=== PATIENT | female | born 1945 | race American Indian/Alaskan Native ===

== ENCOUNTER 2019-05-07 17:12 | Emergency (ER) | payer MEDICARE ==
--- NOTE | 2019-05-07 18:29 | Emergency Department Report ---
HPI - General Chief Complaint: Fall Time Seen by Provider: 05/07/19 18:01 - HPI HPI: 74-year-old -[place] female presents to the emergency department by EMS [place] after she had a ground-level fall. The patient says that she thinks that she did not lift her foot up high and off and tripped on a curb area she fell towards her left side. She fell on her shoulder and did hit her head but denies any loss of consciousness. She complains of some sharp right-sided pains, some dizziness or "feeling woozy", and some left shoulder pain. Patient normally walks with a cane at baseline. She has a past medical history of arthritis and hypertension. Patient is a [facility] patient. She has not taken anything and was not given anything for her symptoms prior to arrival today. ED Past Medical Hx - Past Medical History Previous Medical History?: Yes Hx Hypertension: Yes Hx Arthritis: Yes - Surgical History Past Surgical History?: No - Social History Smoking Status: Never Smoker - Medications Home Medications: Home Medications Medication Instructions Recorded Confirmed Last Taken Type Ibuprofen [Motrin 800 MG tab] 800 mg PO Q8HR PRN #20 tablet 05/07/19 Unknown Rx ED Review of Systems ROS: Stated complaint: HEADACHE Other details as noted in HPI Comment: All other systems reviewed and negative Constitutional: denies: chills, fever Eyes: denies: eye pain, vision change ENT: denies: ear pain, throat pain Respiratory: denies: cough, shortness of breath Cardiovascular: denies: chest pain, palpitations Gastrointestinal: denies: abdominal pain, vomiting Genitourinary: denies: dysuria, discharge Musculoskeletal: arthralgia. denies: back pain Skin: denies: rash, lesions Neurological: headache. denies: weakness, numbness Physical Exam - Physical Exam Vital Signs: Vital Signs 05/07/19 17:38 Temperature 97.7 F Pulse Rate 70 Respiratory 18 Rate Blood Pressure 157/87 O2 Sat by Pulse 100 Oximetry Physical Exam: GENERAL: The patient is well-developed well-nourished. HENT: Normocephalic. Atraumatic. Patient has moist mucous membranes. EYES: Extraocular motions are intact. Pupils equal reactive to light bilatera lly. No nystagmus. NECK: Supple. Trachea is midline. CHEST/LUNGS: Clear to auscultation. There is no respiratory distress noted. HEART/CARDIOVASCULAR: Regular. There is no tachycardia. There is no murmur. ABDOMEN: Abdomen is soft, nontender. Patient has normal bowel sounds. There is no abdominal distention. SKIN: Skin is warm and dry. NEURO: The patient is awake, alert, and oriented. The patient is cooperative. The patient has no focal neurologic deficits. Normal speech. Cranial nerves II through XII grossly intact. MUSCULOSKELETAL: There is no tenderness to palpation to the left shoulder but she has some pain with both active and active motion. There is no limitation range of motion. ED Course Vital Signs 05/07/19 17:38 Temperature 97.7 F Pulse Rate 70 Respiratory 18 Rate Blood Pressure 157/87 O2 Sat by Pulse 100 Oximetry ED Medical Decision Making - Radiology Data Radiology results: report reviewed, image reviewed interpreted by me: CT of the head does not show any acute intracranial process including no ischemia, shift, mass, bleeding or skull fracture. X-ray of the left shoulder does not show any fracture, dislocation or any acute process. - Medical Decision Making Patient had a ground-level fall causing a headache, some nonspecific dizziness and some left shoulder pain. An x-ray of the shoulder was done that does not show any fracture, dislocation, or any acute process. CT of the head without contrast does not show any bleed, shift, mass, ischemia, or any acute process. On physical examination the patient does not have any focal, motor or sensory deficits and her cranial nerves are intact. Patient has some hypertension completely sure whether or not she took her lisinopril today. She was given a dose of Norvasc and a dose of Toradol for pain. The patient was ambulatory in the emergency department both appears and feels stable. She is instructed to follow-up with her primary care physician and has been given a referral for a local orthopedist for her shoulder pain. However she has [employer] insurance and may need to find a [facility] orthopedist. She will return to the ER with any worsening of her symptoms or any acute distress. - Differential Diagnosis shoulder fracture, dislocation, concussion, subarachnoid Critical Care Time: No Critical care attestation.: If time is entered above; I have spent that time in minutes in the direct care of this critically ill patient, excluding procedure time. ED Disposition Clinical Impression: Fall from ground level Head injury Qualifiers: Encounter type: initial encounter Qualified Code(s): S09.90XA - Unspecified injury of head, initial encounter Left shoulder pain Qualifiers: Chronicity: acute Qualified Code(s): M25.512 - Pain in left shoulder Hypertension Qualifiers: Hypertension type: essential hypertension Qualified Code(s): I10 - Essential (primary) hypertension Disposition: TO HOME OR SELFCARE Is pt being admited?: No Condition: Stable Instructions: Minor Head Injury (ED), Hypertension (ED), Arthralgia (ED) Additional Instructions: Please follow-up with your primary care physician in the next few days. I am giving you a referral for a local orthopedist, Dr. Hagan, to follow up regarding her left shoulder pain. Take your blood pressure medications as prescribed. Try and stay away from foods that are high in salt and caffeinated products. Keep a blood pressure log. Return to the emergency Department with any worsening of your symptoms or any acute distress. Prescriptions: Ibuprofen [Motrin 800 MG tab] 800 mg PO Q8HR PRN #20 tablet PRN Reason: Pain , Severe (7-10) Referrals: MADHU HAGAN MD [Staff Physician] - 2-3 Days Time of Disposition: 20:50
--- NOTE | 2019-05-07 19:02 | XRay Report ---
LEFT SHOULDER 3 VIEW(S) INDICATION / CLINICAL INFORMATION: Left shoulder pain COMPARISON: None available. FINDINGS: BONES / JOINT(S): No acute fracture or subluxation. Advanced degenerative changes are present. SOFT TISSUES: No significant abnormality. Signer Name: Kareem Clemente MD Signed: 05/07/2019 6:58 PM Workstation Name: [id number]
[2019-05-07] MEDS ORDERED: ACETAMINOPHEN 325 MG TAB PO ONE (19:43)
--- NOTE | 2019-05-07 19:47 | Cat Scan Report ---
CT head/brain wo con INDICATION: Head trauma. TECHNIQUE: Routine CT head without contrast. All CT scans at this location are performed using CT dose reduction for ALARA by means of automated exposure control. COMPARISON: None. FINDINGS: BRAIN / INTRACRANIAL CONTENTS: No acute hemorrhage, brain edema, mass effect, or hydrocephalus. [place] l mckeon-white differentiation. No chronic infarct. Age-commensurate ventricular and cisternal/sulcal p rominence. CALVARIUM/SKULL BASE/CRANIOCERVICAL JUNCTION: No evidence of fracture. ORBITS: No significant abnormality of visualized orbits. SINUSES / MASTOIDS: No significant abnormality of visualized sinuses and mastoid air cells. ADDITIONAL FINDINGS: None. IMPRESSION: 1. No acute post-traumatic intracranial abnormality. Signer Name: Tristen Sanchez MD Signed: 05/07/2019 7:43 PM Workstation Name: [id number]
[2019-05-07] MEDS ORDERED: KETOROLAC 30 MG/1 ML INJ IM ONE (19:59)
[2019-05-07] MEDS ORDERED: amLODIPine 5 MG TAB PO ONE (19:59)
[2019-05-07 22:26] VITALS: BP 163/71
== END 2019-05-07 21:43 | disposition home or self-care (01) ==
LOC: ED 17:12
DX: S09.90XA Unspecified injury of head, initial encounter (principal); M25.512 Pain in left shoulder; I10 Essential (primary) hypertension; M19.90 Unspecified osteoarthritis, unspecified site; Z79.899 Other long term (current) drug therapy; W01.10XA Fall on same level from slipping, tripping and stumbling with subsequent striking against unspecified object, initial encounter; Y93.89 Activity, other specified; Y92.89 Other specified places as the place of occurrence of the external cause; Y99.8 Other external cause status
CPT/HCPCS: 70450; 73030; 96372; 99284; J1885